=== PATIENT | male | born 1960 | race Caucasian/White ===

== ENCOUNTER 2018-12-03 19:37 | Inpatient (IN) ==
--- NOTE | 2018-12-03 20:22 | Diag Imaging Result Doc PS360 ---
CHEST-PORTABLE - 12/03/2018 INDICATION: trauma COMPARISON: None FINDINGS: The lungs are normally expanded and clear. Heart size and mediastinal contours are normal. No pneumothorax or pleural effusion. There is a right clavicle side plate. IMPRESSION: Negative exam. Electronically signed by Walter Morgan 12/03/2018 8:20 PM
--- NOTE | 2018-12-03 21:32 | PROVIDER DOCUMENTATION ---
[id number] - General Chief Complaint: TRAUMA ALERT Stated Complaint: TRAUMA 10FT FALL Time Seen by Provider: 12/03/18 20:27 Allergies/Adverse Reactions: Patient Allergies Allergy/AdvReac Type Severity Reaction Status Date / Time No Known Allergies Allergy Verified 07/02/18 16:17 Home Medications: Home Medication List Medication Instructions Recorded Confirmed Last Taken Type Celecoxib 200 mg PO DAILY 12/03/18 12/03/18 Unknown History Fosinopril Sodium 40 mg PO DAILY 12/03/18 12/03/18 Unknown History Gabapentin 600 mg PO QHS 12/03/18 12/03/18 Unknown History Tizanidine HCl 2 mg PO Q8H 12/03/18 12/03/18 Unknown History - History of Present Illness -Trauma Nature of Presenting Problem: Patient with a h/o HTN, fell off ladder 10 feet high today. He fell on the left side of the body. He only reports pain to the left chest and left shoulder where he had had previous injury. He denies any head or neck injury or pain. No injury to any other body part. He reports sitting up prior to EMS arrival . He was then placed on a semi rigid collar and transported to the ER. he reports having injuries to different parts of his body since child carter and he is always in pain. His chronic pain is being managed by his PCP Location of Pain/Injury: reports: chest (left sided) Pain Radiation: reports: no radiation Quality of Pain: reports: throbbing Onset/Duration: reports: other (today) Timing: reports: still present Method of Injury: reports: fall Loss of Consciousness: no loss of consciousness Remembers:: reports: injury, coming to hospital Modifying Factors: improves with: nothing Injury Associated Symptoms: reports: denies symptoms Similar Symptoms Previously?: Yes Recently seen or treated by another doctor?: Yes Review of Systems - Adult - REVIEW OF SYSTEMS - ADULT Constitutional: reports: no symptoms reported Eyes: reports: no symptoms reported Ears, Nose, Mouth & Throat: reports: no symptoms reported Cardiovascular: reports: no symptoms reported Respiratory: reports: no symptoms reported Gastrointestinal: reports: no symptoms reported Genitourinary: reports: no symptoms reported Musculoskeletal: reports: see HPI Integumentary: reports: no symptoms reported Neurological: reports: no symptoms reported Psychiatric: reports: no symptoms reported Endocrine: reports: no symptoms reported Hematologic/Lymphatic: reports: no symptoms reported Past History - Adult - PAST MEDICAL HISTORY-ADULT Review of Records: reports: Nursing Assessment Review, Medications Reviewed, Social history reviewed & non-contributory. Cardiovascular: reports: denies history Respiratory: reports: denies history Gastrointestinal: reports: denies history Musculoskeletal: reports: chronic pain Neurological: reports: denies history Psychiatric: reports: denies history - FAMILY HISTORY Family History: reviewed, not pertinent Physical Exam-Injury Related - Physical Exam-Injury Related General Appearance: appears well, alert, no apparent distress Immobilization?: C-collar (initially) Eyes: PERRL/EOMI Head, Ears, Nose, Mouth & Throat: normocephalic/atraumatic Neck: non-tender (even with full range of motion. no bruising), full range of motion, supple, normal inspection Respiratory: lungs clear, normal breath sounds, tenderness (lower left chest wall but without deformity or bruising. no assymetry) Cardiovascular: regular rate, rhythm, no edema Abdominal Exam: non tender, soft Back Exam: normal inspection Extremity: normal range of motion, non-tender, normal gait Neurologic: grossly normal Psych/Mental Status: oriented x 3 - Glascow Coma Score Best Eye Response ([place]): (4) open spontaneously Best Verbal Response ([place]): (5) oriented Best Motor Response ([place]): (6) obeys commands [place] Total: 15 Progress - PLAN OF CARE/RESULTS Progress/Plan/Lab Results: Vital Signs - 8 hr 12/03/18 19:56 12/03/18 20:03 12/03/18 20:15 Pulse Rate 82 87 91 H Respiratory Rate 17 18 13 Blood Pressure 180/109 174/94 187/100 O2 Sat by Pulse Oximetry 96 96 96 12/03/18 20:17 12/03/18 20:33 12/03/18 20:48 Pulse Rate 90 93 H 93 H Respiratory Rate 19 16 13 Blood Pressure 187/100 179/114 128/103 O2 Sat by Pulse Oximetry 96 96 96 12/03/18 21:18 12/03/18 22:14 12/03/18 22:18 Pulse Rate 95 H 95 H 96 H Respiratory Rate 20 22 21 Blood Pressure 152/99 136/73 129/92 O2 Sat by Pulse Oximetry 95 91 L 90 L 12/03/18 22:48 Pulse Rate 91 H Respiratory Rate 22 Blood Pressure 142/87 O2 Sat by Pulse Oximetry 95 Laboratory Results - last 24 hr 12/03/18 12/03/18 12/03/18 01:28 22:12 22:14 WBC 17.71 H RBC 5.78 Hgb 17.1 Hct 51.2 MCV 88.6 MCH 29.6 MCHC 33.4 RDW Std Deviation 13.5 Plt Count 281 MPV 11.1 H Immature Gran % (Auto) 0.2 Neut % (Auto) 80.9 H Lymph % (Auto) 10.3 L [place] % (Auto) 8.2 Eos % (Auto) 0.3 Baso % (Auto) 0.1 Immature Gran # (Auto) 0.04 Neut # (Auto) 14.33 H Lymph # (Auto) 1.82 [place] # (Auto) 1.45 H Eos # (Auto) 0.05 Baso # (Auto) 0.02 Sodium Potassium Chloride Carbon Dioxide Anion Gap BUN Creatinine Estimated GFR/1.73 m2 BUN/Creatinine Ratio Glucose POC Glucose 135 H Calculated Osmolality Calcium Total Bilirubin AST ALT Alkaline Phosphatase Troponin T Ssu-V-Mctbirolryh Pept Total Protein Albumin Globulin Albumin/Globulin Ratio Urine Source VOIDED Urine Color YELLOW Urine Turbidity CLEAR Urine pH 6.0 Ur Specific Gibson 1.023 Urine Protein TRACE A Ur Glucose (Stick) NEGATIVE Ur Ketones (Stick) 60 A Urine Blood NEGATIVE Urine Nitrite NEGATIVE Urine Bilirubin NEGATIVE Urobilinogen Dipstick NORMAL Urine Leukocytes NEGATIVE Urine WBC (Auto) <10 Urine RBC (Auto) <10 U Epithel Cells (Auto) <10 Urine Bacteria (Auto) NEGATIVE 12/03/18 12/03/18 12/03/18 22:14 22:14 22:14 WBC RBC Hgb Hct MCV MCH MCHC RDW Std Deviation Plt Count MPV Immature Gran % (Auto) Neut % (Auto) Lymph % (Auto) Piute % (Auto) Eos % (Auto) Baso % (Auto) Immature Gran # (Auto) Neut # (Auto) Lymph # (Auto) Pi[place] # (Auto) Eos # (Auto) Baso # (Auto) Sodium 139 Potassium 4.5 Chloride 103 Carbon Dioxide 22 L Anion Gap 14 BUN 19 Creatinine 1.2 Estimated GFR/1.73 m2 > 60 BUN/Creatinine Ratio 16 Glucose 142 H POC Glucose Calculated Osmolality 282 Calcium 9.6 Total Bilirubin 0.55 AST 35 H ALT 34 Alkaline Phosphatase 101 Troponin T < 0.010 Maj-O-Givxhwwmvcb Pept 35 Total Protein 7.2 Albumin 4.6 Globulin 2.6 Albumin/Globulin Ratio 1.8 Urine Source Urine Color Urine Turbidity Urine pH Ur Specific Gibson Urine Protein Ur Glucose (Stick) Ur Ketones (Stick) Urine Blood Urine Nitrite Urine Bilirubin Urobilinogen Dipstick Urine Leukocytes Urine WBC (Auto) Urine RBC (Auto) U Epithel Cells (Auto) Urine Bacteria (Auto) 12/04/18 00:57 WBC RBC Hgb 15.6 Hct 47.2 MCV MCH MCHC RDW Std Deviation Plt Count MPV Immature Gran % (Auto) Neut % (Auto) Lymph % (Auto) Pi[place] % (Auto) Eos % (Auto) Baso % (Auto) Immature Gran # (Auto) Neut # (Auto) Lymph # (Auto) Piute # (Auto) Eos # (Auto) Baso # (Auto) Sodium Potassium Chloride Carbon Dioxide Anion Gap BUN Creatinine Estimated GFR/1.73 m2 BUN/Creatinine Ratio Glucose POC Glucose Calculated Osmolality Calcium Total Bilirubin AST ALT Alkaline Phosphatase Troponin T Rmb-J-Vcqjbkjzuxa Pept Total Protein Albumin Globulin Albumin/Globulin Ratio Urine Source Urine Color Urine Turbidity Urine pH Ur Specific Gibson Urine Protein Ur Glucose (Stick) Ur Ketones (Stick) Urine Blood Urine Nitrite Urine Bilirubin Urobilinogen Dipstick Urine Leukocytes Urine WBC (Auto) Urine RBC (Auto) U Epithel Cells (Auto) Urine Bacteria (Auto) Orders Category Date Time Status Nursing- Obtain EKG ONCE Care 12/03/18 22:10 Active CHEST-PORTABLE [RAD] Stat Exams 12/03/18 19:[address] HEAD/C-SPINE W/O CONTRAST [CT] Stat Exams 12/03/18 22:[address] THORAX W/O CONTRAST [CT] Stat Exams 12/04/18 00:02 Taken RIBS ONLY LEFT [RAD] Stat Exams 12/03/18 22:11 Taken CBC WITH ELECTRONIC DIFF [HEME] Stat Lab 12/03/18 22:14 Completed COMPREHENSIVE METABOLIC PANEL [CHEM] Stat Lab 12/03/18 22:14 Completed HEMATOCRIT [HEME] Stat Lab 12/04/18 00:57 Completed HEMOGLOBIN [HEME] Stat Lab 12/04/18 00:57 Completed PRO B-NATRIURETIC PEPTIDE Stat Lab 12/03/18 22:14 Completed TROPONIN T Stat Lab 12/03/18 22:14 Completed UA [URINALYSIS] [URINALYSIS] Stat Lab 12/03/18 01:28 Completed 0.9% Sodium Chloride Inj [Ns] 1,000 ml Med 12/03/18 22:11 Discontinued IV 999 mls/hr Morphine Med 12/04/18 00:57 Discontinued 4 mg IV NOW ONE Ondansetron [Zofran] Med 12/04/18 00:57 Discontinued 4 mg IV NOW ONE EKG [EKG] Stat Ther 12/03/18 22:10 Draft patient was to be discharged home when he became diaphoretic and had a brief moment of confusion. investigations reveals neg CT head and neck,high wbc of 17.17, neg troponin. plan is to admit patient. Case discussed with Dr Coulter at 12:05am. He wants reevaluation with repeat h/h and start CT chest Result Diagrams: 12/04/18 00:57 12/03/18 22:14 - REASSESSMENT Reassessment #1 Time Reassessed: 01:01 (still left chest pain. CT chest report pending. Will give morphine + zofran) Status: unchanged - CT/MRI 1 MRI Study: Chest (left 3rd and 7th rib fractures, fracture left scapular. Less than 5% pneumothorax) - CONSULTS/PCP/HOSPITALIST Notification #1 *Consult/PCP/Hospitalist*: Dr Han Time Discussed: 02:10 Consult Disposition: Admit (accept admission) Departure - Departure Date of Disposition Decision: 12/03/18 Time of Disposition Decision: 21:52 DIAGNOSIS: Chest wall pain Fall Qualifiers: Encounter type: initial encounter Qualified Code(s): W19.XXXA - Unspecified fall, initial encounter Disposition: HOME 01 Certified Medical Emergency: Emergent Condition: Fair Additional Instructions: ED Follow Up Instructions: You have been treated by a care provider in the Emergency Department. These instructions are being provided to you so you can have an understanding of how to care for yourself upon discharge. Upon discharge from the Emergency Department, you are responsible for making arrangements for follow-up care by a physician in 1 to 2 days Take all prescribed medications as directed. Return to the Emergency Department immediately for any new or worsening symptoms. You may call the Physician Referral phone number at [phone] to obtain a list of Physicians who are taking new patients. Referrals and Follow-Ups: None,PCP [Primary Care Provider] - Work Excuses: Return to School/Parent Work Discharge Education: RICE Therapy for Routine Care of Injuries, Npjh-lq-Thne, Fall Prevention in the Home, Adult, [id number] - Critical Care Note This patient required my direct & personal management of CC.: No Attestation - Physician/ KIRA Attestation Patient care was provided by Advanced Practice Provider:: No The physician spent face to face time with patient:: Yes Advanced Practice Provider documentation review:: Supervising physician onsite and consulted in the evaluation and care of this patient. The physician did have a face to face encounter with the patient.
[2018-12-03] MEDS ORDERED: NS 1,000 ML IV ONE (22:11)
--- NOTE | 2018-12-03 22:22 | EKG Report ---
Test Performed on : 12/03/2018 10:18:56 PM Test Reason : syncope Blood Pressure : / mmHG Vent. Rate : 095 BPM Atrial Rate : 095 BPM P-R Int : 178 ms QRS Dur : 082 ms QT Int : 358 ms P-R-T Axes : 026 -05 020 degrees QTc Int : 449 ms Normal sinus rhythm. Inferior infarct (cited on or before 03-DEC-2018) Cannot rule out Anterior infarct (cited on or before 03-DEC-2018) Abnormal ECG When compared with ECG of 03-DEC-2018 19:41, (Unconfirmed) No significant change was found Unconfirmed Result
[2018-12-03 22:58] LABS: BASO# 0.02 X1000 (0.0-0.2); BASO% 0.1 % (0.0-0.8); EOS# 0.05 X1000 (0.0-0.7); EOS% 0.3 % (0.0-10.0); HEMATOCRIT 51.2 % (42.0-52.0); HEMOGLOBIN 17.1 g/dL (14.0-18.0); IMM GRAN# 0.04 X1000 (0.0-0.04); IMM GRAN% 0.2 % (0.0-0.5); LYMPH# 1.82 X1000 (1.2-3.4); LYMPH% 10.3 % (20.5-51.1); MCH 29.6 PG (27-31); MCHC 33.4 g/dL (33-37); MCV 88.6 FL (81-99); MONO# 1.45 X1000 (0.11-0.59); MONO% 8.2 % (1.7-9.3); MPV 11.1 FL (7.4-10.4); NEUT# 14.33 X1000 (1.4-6.5); NEUT% 80.9 % (42.2-75.2); PLT 281 X1000 (130-400); RBC 5.78 XMIL (4.7-6.1); RDW 13.5 % (11.5-14.5); WBC 17.71 X1000 (4.8-10.8)
[2018-12-03 23:02] LABS: AGAP 14; ALB/GLOB RATIO 1.8; ALBUMIN 4.6 g/dL (3.5-5.0); ALKALINE PHOSPHATASE 101 U/L (32-122); BUN 19 mg/dL (8-22); CALCIUM 9.6 mg/dL (8.8-10.2); CHLORIDE 103 mmol/L (98-107); COSMO 282; CREATININE 1.2 mg/dL (0.7-1.2); ESTIMATED GFR > 60; GLUCOSE 142 mg/dL (70-104); GOT 35 U/L (10-34); GPT 34 U/L (10-44); POTASSIUM 4.5 mmol/L (3.5-5.1); SODIUM 139 mmol/L (136-145); TCO2 22 mmol/L (25-35); TOTAL BILIRUBIN 0.55 mg/dL (0.20-1.00); TOTAL PROTEIN 7.2 g/dL (6.3-8.3)
[2018-12-04] MEDS ORDERED: MORPHINE IV ONE (00:57)
[2018-12-04] MEDS ORDERED: ZOFRAN IV ONE (00:57)
[2018-12-04 01:10] LABS: HEMATOCRIT 47.2 % (42.0-52.0); HEMOGLOBIN 15.6 g/dL (14.0-18.0)
[2018-12-04 01:50] LABS: URINE SOURCE VOIDED
[2018-12-04 01:52] LABS: BILIRUBIN URINE NEGATIVE (NEGATIVE); BLOOD URINE NEGATIVE (NEGATIVE); COLOR YELLOW; GLUCOSE URINE NEGATIVE (NEGATIVE); KETONE URINE 60 mg/dL (NEGATIVE); LEUKOCYTES URINE NEGATIVE (NEGATIVE); NITRITE URINE NEGATIVE (NEGATIVE); PROTEIN URINE TRACE mg/dL (NEGATIVE); SP GRAVITY URINE 1.023; TURBIDITY URINE CLEAR (CLEAR); UROBILINOGEN URINE NORMAL (NORMAL)
[2018-12-04 01:53] LABS: UR EPITHELIAL CELLS <10 /HPF (<10); URINE BACTERIA NEGATIVE /HPF; URINE RBC <10 /HPF (<10); URINE WBC <10 /HPF (<10)
[2018-12-04] MEDS ORDERED: ZOFRAN IV PRN (04:04)
[2018-12-04] MEDS ORDERED: TYLENOL PO PRN (04:04)
[2018-12-04] MEDS: ZANAFLEX PO SCH ×3 (04:53→21:43)
[2018-12-04] MEDS: DILAUDID IV PRN ×5 (04:53→21:43)
--- NOTE | 2018-12-04 04:58 | HISTORY AND PHYSICAL ---
CHIEF COMPLAINT: Fall. HPI: This is a 58-year-old male who fell roughly 10 feet off of a ladder today. He fell on his left side across a 2 x 6 board, hitting his left ribcage and then shoulder when he hit the ground. He denies any head or neck injury or pain. Denied injury to other body parts. He was sitting up prior to arrival by EMS. A chest x-ray showed left-sided rib fractures. The patient became diaphoretic as well as hypoxic while in the emergency room. A CT of his chest was obtained which showed less than 5% pneumothorax. His pain will be managed. He will be placed on high-flow oxygen and put on observation status for further evaluation and treatment. PAST MEDICAL HISTORY: Hypertension, kidney stones. PREVIOUS SURGICAL HISTORY: Appendectomy, cholecystectomy, right shoulder surgery, right collarbone replacement. SOCIAL HISTORY: He works on a farm. No tobacco, alcohol, or illicit drugs. FAMILY HISTORY: Father had 5 myocardial infarctions and 7 strokes. Multiple first degree relatives with diabetes mellitus. ALLERGIES: NO KNOWN DRUG ALLERGIES. HOME MEDICATIONS: 1. Celecoxib 200 mg p.o. daily. 2. Fosinopril 40 mg p.o. daily. 3. Neurontin 600 mg p.o. at bedtime. 4. Tizanidine 2 mg p.o. q.8. REVIEW OF SYSTEMS: A 14-point review of systems was conducted with the patient. He complains of left chest pain. He denies any overt shortness of breath. He also has some left shoulder pain. States that he has chronic pain. Has multiple areas of pain in other body parts as well which he has chronically. Denies any bowel or bladder complaints or chest pain. PHYSICAL EXAMINATION: VITAL SIGNS: Patient is afebrile, pulse 91, respirations 22, blood pressure 142/87, oxygen saturation 95% on 2L nasal cannula. GENERAL: Pleasant 58-year-old male lying in ER stretcher. He is alert and oriented x3. Answers all questions appropriately. HEENT: Head is atraumatic, normocephalic. Pupils equal, round, react to light. Extraocular eye movements intact. Sclera anicteric. Conjunctiva pink. Oral mucosa is moist. NECK: Supple. No JVD. No thyromegaly. Trachea is midline. No cervical lymphadenopathy. CARDIAC: S1, S2 are appreciated. No murmurs, gallops, rubs. CHEST: Left chest wall and ribs are very tender to palpation. LUNGS: Clear to auscultation bilaterally. No rhonchi, wheezes, rales. Symmetric rise and fall respirations. ABDOMEN: Protuberant. Soft, nondistended, nontender. Bowel sounds present all 4 quadrants, normoactive. No pulsatile mass. No organomegaly. EXTREMITIES: No clubbing, cyanosis or edema, 2+ pedal pulses bilaterally. GENITOURINARY: No bladder distention. Patient voids, otherwise deferred. NEUROLOGICAL: Alert and oriented x3. Cranial nerves 2-12 grossly intact. DIAGNOSTIC DATA: Chest x-ray shows multiple left rib fractures. CT of the chest shows rib fractures as well as a 5% pneumothorax on the left side. LABORATORY DATA: WBC 17.71, hemoglobin 17.1, hematocrit 51,2, platelet count 281,000. Sodium 139, potassium 4.5, chloride 103, carbon dioxide 22, BUN 19, creatinine 1.2, glucose 142. Urine unremarkable. ASSESSMENT AND PLAN: 1. Right rib fractures. Will manage pain with Dilaudid as morphine was not working. Will continue to keep patient comfortable. 2. Small left-sided pneumothorax. Will place on high-flow oxygen. Recommend repeat CT of the chest in 24 hours as it was not picked up plain film. 3. Hypertension. Continue TABITHA inhibitor. 4. Chronic pain. Continue home medications. 5. Leukocytosis. This is likely reactive. Will recheck laboratory data. 6. Hyperglycemia. Check hemoglobin A1c as patient does have a strong history of diabetes mellitus in first degree relatives. Further recommendations per patient's clinical course. Dictated by CHEMA Spears for Lis Coulter MD cc: CHEMA Spears MD Pt's exam was notable for tenderness on L lateral aspect of chest without any crepitus. Discussed the above plan of care with NOUGAT CANDY MAKER HELPER. ANDREI
[2018-12-04 05:00] LABS: HEMOGLOBIN A1C 6.1 % (4.8-6.0)
--- NOTE | 2018-12-04 06:26 | Diag Imaging Result Doc PS360 ---
CT HEAD/C-SPINE W/O CONTRAST - 12/03/2018 INDICATION: head injury/pain COMPARISON: 07/18/2010 FINDINGS: Head CT: The ventricles and sulci are normal in size and contour. No intracranial mass or hemorrhage. The skull is intact. The sinuses, mastoids, and middle ears are clear. Cervical spine: Alignment is anatomic. No fracture or subluxation. Vertebral body heights are preserved. Mild degenerative disc disease at C6-7 and C7-T1. No central canal stenosis. IMPRESSION: No acute injury. This exam was performed using automated exposure control, adjustment of mA or kV according to patient size, and/or use of iterative reconstruction technique Electronically signed by Walter Morgan 12/04/2018 6:23 AM
--- NOTE | 2018-12-04 06:53 | Diag Imaging Result Doc PS360 ---
CT THORAX W/O CONTRAST - 12/04/2018 INDICATION: fall from heightwith left chest pain, near syncope COMPARISON: None FINDINGS: There are minimally displaced fractures of the left third and seventh ribs. There is nondisplaced fracture through the left scapular body. There is no adenopathy. There is a small lipoma within the pectoralis muscles of the anterior right chest. No pneumothorax. There is moderate infiltrate in the left lower lobe. There is some platelike atelectasis in the lingula and right lung base. Heart and great vessels are normal. Upper abdominal images are normal. No fluid collections. IMPRESSION: 1. Fractures of the left third and seventh ribs. 2. Nondisplaced left scapular body fracture. 3. Significant left lower lobe infiltrate, nonspecific. Bibasilar linear atelectasis. No pneumothorax. This exam was performed using automated exposure control, adjustment of mA or kV according to patient size, and/or use of iterative reconstruction technique Electronically signed by Walter Morgan 12/04/2018 6:50 AM
--- NOTE | 2018-12-04 07:15 | Diag Imaging Result Doc PS360 ---
EXAM: RIBS ONLY LEFT 12/03/2018 HISTORY: fall, rib pain TECHNIQUE: Left rib series 4 views COMMENT: There is apparent subsegmental atelectasis in the left base. There are fractures of the lateral left third, posterior fourth, fifth, sixth, and seventh ribs. There is no evidence of pneumothorax. No definite pleural fluid collection is present. IMPRESSION: Multiple left rib fractures. Electronically signed by Carlo Pina 12/04/2018 7:13 AM
[2018-12-04] MEDS: MONOPRIL PO SCH (09:38)
--- NOTE | 2018-12-04 16:49 | PROGRESS NOTE ---
DATE: 12/04/2018 SUBJECTIVE: This morning Mr. Swenson refers to be doing well. Denies any new complaints except for pains to the left shoulder. OBJECTIVE: Vital Signs: Blood pressure 120/66, pulse 73, respirations 18, and temperature 98.1 degrees. General: Mr. Swenson is a 58 years old gentleman. He was in bed in mild painful distress. HEENT: Mucosa is pink and moist. Anicteric. Acyanotic. Neck: Supple. Chest: Air entry was bilaterally reduced more so to the left posterior lung field. Cardiovascular: Regular rate and rhythm. No murmurs, no rubs, no gallops. Abdomen: Soft. Distended but nontender. Bowel sounds present. Extremities: No pedal edema. SUPERVISOR ADVICE: Patient is awake, alert, and oriented. Musculoskeletal: Patient has pain, tenderness, in mobilizing the left shoulder in any plane. LABORATORY: Data from yesterday has been reviewed. Hemoglobin this morning is 15.7. The patient's A1c was 6.1. A CT scan of the chest which was done early this morning shows fractures of the left 3rd and 7th ribs, nondisplaced left scapular body, significant left lower lobe infiltrate, nonspecific. No pneumothorax. ASSESSMENT: 1. Status post mechanical fall from a ladder resulting into fractures of the left 3rd and 7th ribs, and also a non displaced left scapular body fracture. The patient has significant tenderness mobilizing the left shoulder so we will get Orthopedics to evaluate him. 2. Traumatic pneumothorax resolved. 3. Left lower lobe infiltrate questionable for lung contusion. The patient has been advised on incentive spirometer. 4. Hypertension controlled. 5. Chronic pain syndrome. Patient is on gabapentin and tizanidine at home. 6. Cervical disk bulging with some with radiculopathy. The patient is on gabapentin, and follows up with primary care. cc: Lionel Allen MD
[2018-12-04] MEDS ORDERED: NEURONTIN PO SCH (21:00)
--- NOTE | 2018-12-04 21:41 | ORTHOPAEDICS CONSULTATION ---
DATE: 12/04/2018 SERVICE: Orthopedic surgery. REQUESTING PHYSICIAN: Dr. Allen. REASON FOR CONSULTATION: Left scapular fracture. PAST MEDICAL HISTORY: 1. Hypertension. 2. Kidney stones. PAST SURGICAL HISTORY: 1. Appendectomy. 2. Cholecystectomy. 3. Right shoulder surgery with what sounds like ORIF right clavicle fracture. MEDICATIONS: 1. Fosinopril. 2. Gabapentin. 3. Tizanidine. 4. Celebrex. ALLERGIES: No known drug allergies. SOCIAL HISTORY: Patient lives in [place], [place]. Works on a farm. He is right-hand dominant. Denies any tobacco, alcohol, drug use. FAMILY HISTORY: Noncontributory. REVIEW OF SYSTEMS: Negative other than what is listed in the history of present illness. CHIEF COMPLAINT: Left rib and shoulder pain. HISTORY OF PRESENT ILLNESS: Mr. Edgar is a 58-year-old gentleman who presented to [facility] ER yesterday after sustaining a 10-foot fall from a ladder. Patient states he fell from the ladder onto a 2 x 6 which hit directly on his left side ribs. He had significant pain and problems breathing following this. He thus presented to the ER. In the ER, x-rays were taken demonstrating left 3rd and 7th rib fractures as well as small pneumothorax. CT scan of the chest was done, which showed a nondisplaced scapular body fracture. Orthopedic surgery was thus consulted. The patient reports pain with attempted range of motion of his arm. He denies any prior injury on the left arm. Again, he is right-hand dominant. PHYSICAL EXAMINATION: General: Mr. Swenson is a 58-year-old male who appears well nourished, well developed, in no acute distress. He is awake, alert, and oriented x3. He is very polite and cooperative during examination. Vital Signs: Temperature is 98.3 degrees Celsius, heart rate 78, respiratory rate 20, blood pressure 145/75. O2 saturation 95% on room air. HEENT: Normocephalic and atraumatic. Respiratory: Nonlabored breathing. Cardiovascular: Regular rate and rhythm. Extremities: Examination of left upper extremity reveals skin to be intact. Patient has tenderness to palpation over his scapular body posteriorly. He is nontender over his clavicle, AC joint, acromion, proximal humerus. He has no pain with short arc range of motion of his shoulder by his side. He does have pain in the scapula and ribs with attempted abduction or forward flexion of the shoulder. He has subjective paresthesias in his hand globally secondary to cervical radiculopathy, which he takes chronic narcotics for and is followed by his primary care doctor for this. Motors intact to AIN, PIN, and ulnar nerve distribution. Sensation is grossly intact median, radial, ulnar, axillary nerves. Radial pulse palpable, and equal bilaterally. LABORATORY DATA: White count 18, hemoglobin 15.6, hematocrit 47.2, platelets 281,000. IMAGING DATA: CT scan of the chest was reviewed demonstrating a nondisplaced scapular body fracture. No fracture of the acromion, glenoid, or clavicle present on x-ray. Patient also has a left 3rd and 7th rib fracture. Two views of the left rib cage were also reviewed, again demonstrating the above fractures. The humeral head is partially visualized on this x-ray demonstrating repair and reduction in the joint, which was also confirmed on CT scan. ASSESSMENT: A 58-year-old male with left nondisplaced scapular body fracture. PLAN: 1. A long discussion was had with patient regarding diagnosis and treatment options. As the fracture is in good alignment, I will treat this conservatively. We will recommend the patient wear a sling for comfort. I want him to come out of the sling multiple times a day to work on elbow, forearm, wrist, and hand range of motion. Physical Therapy can work with him and educate him on Codman pendulum exercises for the shoulder. I told him it usually takes about 8 to 10 weeks for these to fully heal. I will plan on seeing him in clinic in 2 weeks with repeat 3 views of the shoulder to ensure no displacement of the fracture. 2. Physical Therapy to work with him on Codman pendulum exercises as mentioned above. 3. I will order 3 views of the left shoulder in order to have baseline imaging, and I get a better picture of the scapula to assess for any other displacement or abnormalities.
[2018-12-05] MEDS: DILAUDID IV PRN ×5 (01:01→14:41)
[2018-12-05] MEDS: ZANAFLEX PO SCH ×2 (04:24→11:15)
[2018-12-05 06:57] LABS: BASO# 0.02 X1000 (0.0-0.2); BASO% 0.2 % (0.0-0.8); EOS# 0.04 X1000 (0.0-0.7); EOS% 0.4 % (0.0-10.0); HEMOGLOBIN 15.4 g/dL (14.0-18.0); IMM GRAN# 0.03 X1000 (0.0-0.04); IMM GRAN% 0.3 % (0.0-0.5); LYMPH# 1.19 X1000 (1.2-3.4); LYMPH% 10.5 % (20.5-51.1); MCHC 32.8 g/dL (33-37); MCV 91.6 FL (81-99); MONO# 1.18 X1000 (0.11-0.59); MONO% 10.4 % (1.7-9.3); MPV 10.8 FL (7.4-10.4); NEUT# 8.89 X1000 (1.4-6.5); NEUT% 78.2 % (42.2-75.2); PLT 207 X1000 (130-400); RBC 5.13 XMIL (4.7-6.1); RDW 13.7 % (11.5-14.5); WBC 11.35 X1000 (4.8-10.8)
[2018-12-05 07:22] LABS: AGAP 10; BUN 19 mg/dL (8-22); CALCIUM 8.3 mg/dL (8.8-10.2); CHLORIDE 100 mmol/L (98-107); COSMO 273; CREATININE 0.9 mg/dL (0.7-1.2); ESTIMATED GFR > 60; GLUCOSE 117 mg/dL (70-104); POTASSIUM 3.6 mmol/L (3.5-5.1); SODIUM 135 mmol/L (136-145); TCO2 25 mmol/L (25-35)
[2018-12-05] MEDS: MONOPRIL PO SCH ×2 (07:58→08:11)
--- NOTE | 2018-12-05 08:58 | Diag Imaging Result Doc PS360 ---
EXAM: SHOULDER-LEFT 12/05/2018 HISTORY: Scapula Fracture TECHNIQUE: Left shoulder four views COMMENT: There are fractures of the lateral left third and the anterolateral fourth ribs. There are also apparent fractures of the anterolateral sixth and seventh ribs. There is no evidence of pneumothorax. There is an apparent nondisplaced fracture of the scapula just below the neck which is only visible on the Y-view. IMPRESSION: Nondisplaced scapular fracture and multiple rib fractures as described above. Electronically signed by Carlo Pina 12/05/2018 8:55 AM
--- NOTE | 2018-12-05 10:24 | Diag Imaging Result Doc PS360 ---
EXAM: CHEST-2 VIEWS INDICATION: hypoxia TECHNIQUE: 2 views COMPARISON: 12/03/2018 FINDINGS: At the lung volumes are low. There is increase in linear density at the lung bases likely representing atelectasis. There may be a trace effusion on the left. No other new consolidation is identified. Cardiac silhouette is stable. IMPRESSION: Development of mild subsegmental atelectasis at the lung bases and possible trace effusion on the left. Electronically signed by Caleb Cr 12/05/2018 10:21 AM
--- NOTE | 2018-12-05 11:01 | PROGRESS NOTE ---
DATE: 12/05/2018 SUBJECTIVE: This morning, Mr. Swenson referred to be doing well. Still has some pains in the left shoulder and the left side of the chest. OBJECTIVE: Vital Signs: Blood pressure is 129/73, pulse of 83, respirations 20, temperature is 99.2 degrees, the patient was saturating 93%. General: Mr. Swenson is a 58-year-old gentleman. He was in bed. He is now on nasal cannula oxygenation. HEENT: Mucosa is pink and moist. Anicteric. Acyanotic. Neck: Supple. Chest: Air entry is bilaterally reduced, more so to the left posterior lung field. There are some crepitations posteriorly. Cardiovascular: Regular rate and rhythm. No murmurs, no rubs, no gallops. GI: Abdomen is soft, nontender. Bowel sounds present. Extremities: No pedal edema. TRAINING TECHNICIAN: The patient is awake, alert, and oriented. Musculoskeletal: The patient does have some tenderness on mobilizing the left shoulder. Has a limited range of motion. There is also some tenderness on palpating the lateral aspect of the left chest cage. IMAGING: Chest x-ray this morning suggests nondisplaced scapular fracture and multiple rib fractures described. ASSESSMENT: 1. Status post mechanical fall from a ladder, resulting into multiple rib fractures, associated with also a nondisplaced left scapular fracture. The patient was evaluated by Orthopedics. For now, conservative management has been recommended. 2. Traumatic pneumothorax, resolved. 3. Acute hypoxemic respiratory failure. The patient is needing supplemental oxygen. 4. Left lower lobe infiltrate, questionable for lung contusion. The patient has been advised to continue using incentive spirometer. We are also doing a chest x-ray this morning to follow up on any improvement or worsening on the initial image. 5. Hypertension, controlled. 6. History of chronic pain syndrome. 7. History of cervical disk bulging with some cervical radiculopathy. The patient follows up with primary care. He is on gabapentin. In general, I think Mr. Swenson is doing fairly okay. He is now needing oxygen supplementation, which I think is due to the fact that he has antalgic respiration due to pain, and he also has a left lower lobe infiltrate due to lung contusion. His white cell count is coming down, so I do not really think that there is an infection. However, a superimposed infection cannot be 100% ruled out. Depending on his chest x-ray this morning, we will start him on antibiotics, and continue to advise him to use incentive spirometer, and possibly discharge him. cc: Lionel Allen MD
[2018-12-05 15:28] VITALS: BP 126/69
--- NOTE | 2018-12-06 05:31 | DISCHARGE SUMMARY ---
ADMISSION DATE: 12/04/2018 DISCHARGE DATE: 12/05/2018 DISPOSITION: Home. FOLLOW-UP: Dr. Umanzor. CONSULTATIONS DURING ADMISSION: Orthopedics was consulted. Patient was seen by Dr. Umanzor. INVASIVE PROCEDURES DONE DURING ADMISSION: None. IMAGING STUDIES OF SIGNIFICANCE: 1. Chest x-ray initially was negative. 2. A CT scan of the head and cervical spine showed no acute injury. 3. CT scan of the chest did show fractures of the left 3rd and 7th ribs. Significant left lower lobe infiltrate, nonspecific bibasilar linear atelectasis. 4. A repeat chest x-ray this morning shows mild segmental atelectasis at the lung bases, and possible trace effusion on the left. 5. Shoulder x-ray showed nondisplaced scapular fracture and multiple rib fractures. ADMISSION DIAGNOSES: 1. Right rib fractures. 2. Small left sided pneumothorax. 3. Hypertension. 4. Chronic pain. DIAGNOSES AT TIME OF DISCHARGE: 1. Status post mechanical fall from a ladder resulting into multiple rib fractures and nondisplaced left scapular fracture. 2. Small traumatic pneumothorax that got resolved with oxygen therapy during the hospital course. 3. Acute hypoxemic respiratory failure improved. 4. Left lung contusion with left lower lobe infiltrates. The patient has been advised to continue using incentive spirometer. 5. Hypertension. 6. History of chronic pain. 7. History of cervical disk bulging with cervical radiculopathy. DISCHARGE MEDICATIONS: 1. Fosinopril 40 mg p.o. daily. 2. Gabapentin 600 p.o. at bedtime. 3. Tizanidine 2 mg p.o. q.8. 4. Celecoxib 200 mg p.o. daily. PRESENTING COMPLAINT: Fall. HISTORY OF PRESENTING COMPLAINT: Mr. Swenson is a 58-year-old gentleman who was doing some work at home, had gone on a ladder of about 10 feet, accidentally lost balance, and fell sustaining injury to the left side. He started having some pain and difficulty breathing. He was brought into the emergency department where he was found to be slightly hypoxemic and diaphoretic. A CT scan did make mention of about 5% pneumothorax and multiple rib fractures. Mr. Swenson was admitted for further medical care. HOSPITAL COURSE: Mr. Swenson was admitted to the medical floor, and was initially placed on supplemental oxygen. Repeat imaging studies did show resolution of the pneumothorax. His pain got better controlled. During the hospital course, he was also seen by Orthopedics for the scapular fracture. Recommendation was to treat this conservatively. Today, Mr. Swenson refers to be doing well. He has been taking off supplemental oxygen. He is saturating anywhere between 92 to 94. He has been advised to continue using incentive spirometer, and continue with his pain medications at home for pain relief. Mr. Swenson did not want any more pain medications, and he said he just wanted to continue with what he has at home. We did stress the utmost importance of continued use of incentive spirometer to help open up any atelectatic lung. And also to prevent any infection on the contusion of the lungs. During the course of the encounter, the was at the bedside. We explained the discharge instructions to both of them, and they both voiced understanding. TIME SPENT: Time spent for discharge 35 minutes. cc: MD Trev Farooq MD
== END 2018-12-05 16:49 | disposition home or self-care (01) | DRG 199 ==
LOC: ED 19:37 → 4N 19:37 → OBSVTOIN 12-04 03:12 → SUATTDRO 12-04 03:12
PROVIDERS: ATTEND Internal Medicine

== ENCOUNTER 2018-12-27 06:37 | Inpatient (IN) ==
[2018-12-27 07:43] LABS: BASO# 0.03 X1000 (0.0-0.2); BASO% 0.5 % (0.0-0.8); EOS# 0.39 X1000 (0.0-0.7); EOS% 6.1 % (0.0-10.0); HEMATOCRIT 48.4 % (42.0-52.0); HEMOGLOBIN 15.9 g/dL (14.0-18.0); IMM GRAN# 0.02 X1000 (0.0-0.04); IMM GRAN% 0.3 % (0.0-0.5); LYMPH# 1.11 X1000 (1.2-3.4); LYMPH% 17.3 % (20.5-51.1); MCH 29.5 PG (27-31); MCHC 32.9 g/dL (33-37); MCV 89.8 FL (81-99); MONO# 0.63 X1000 (0.11-0.59); MONO% 9.8 % (1.7-9.3); MPV 10.9 FL (7.4-10.4); NEUT# 4.22 X1000 (1.4-6.5); PLT 260 X1000 (130-400); RBC 5.39 XMIL (4.7-6.1); RDW 13.2 % (11.5-14.5)
[2018-12-27] MEDS ORDERED: MORPHINE IV ONE (07:48)
[2018-12-27] MEDS ORDERED: ZOFRAN IV ONE (07:48)
--- NOTE | 2018-12-27 07:51 | PROVIDER DOCUMENTATION ---
HPI-General Adult - General Chief Complaint: Abdominal Pain Stated Complaint: LOW STOMACH PAIN Time Seen by Provider: 12/27/18 07:47 Source: patient, family Allergies/Adverse Reactions: Patient Allergies Allergy/AdvReac Type Severity Reaction Status Date / Time No Known Allergies Allergy Verified 12/27/18 06:56 Home Medications: Home Medication List Medication Instructions Recorded Confirmed Last Taken Type Celecoxib 200 mg PO DAILY 12/03/18 12/27/18 Unknown History Fosinopril Sodium 40 mg PO DAILY 12/03/18 12/27/18 Unknown History Gabapentin 600 mg PO QHS 12/03/18 12/27/18 Unknown History Tizanidine HCl 2 mg PO Q8H 12/03/18 12/27/18 Unknown History - History of Present Illness -Gen Adult Nature of Presenting Problems: 58 YO REPORTS LLQ PAIN 0400 , TENDER SAME SPOT. RECENT FALL WITH LEFT BROKEN RI BS AND PNEUMO HERE . DENIES V/N/D, COUGH, FEVER, DYSURIA. NO BM YESTERDAY. NO PRIOR HX DIVERTICULITIS. NO OTHER HEALTH PROBLEMS. Review of Systems - Adult - REVIEW OF SYSTEMS - ADULT Constitutional: reports: no symptoms reported. denies: chills, fever, fatique Eyes: reports: no symptoms reported Ears, Nose, Mouth & Throat: reports: no symptoms reported Cardiovascular: reports: see HPI Respiratory: reports: no symptoms reported Gastrointestinal: reports: no symptoms reported Genitourinary: reports: no symptoms reported Musculoskeletal: reports: no symptoms reported Integumentary: reports: no symptoms reported Neurological: reports: no symptoms reported Psychiatric: reports: no symptoms reported Endocrine: reports: no symptoms reported Hematologic/Lymphatic: reports: no symptoms reported Allergic/Immunologic: reports: no symptoms reported All Other Systems: Reviewed and Negative Past History - Adult - PAST MEDICAL HISTORY-ADULT Review of Records: reports: Nursing Assessment Review, Medications Reviewed, Social history reviewed & non-contributory. Cardiovascular: reports: denies history Respiratory: reports: denies history Gastrointestinal: reports: denies history Musculoskeletal: reports: chronic pain Neurological: reports: denies history Psychiatric: reports: denies history - FAMILY HISTORY Family History: reviewed, not pertinent Physical Exam-General - PHYSICAL EXAM-ADULT Initial Vital Signs Reviewed: Yes - CONSTITUTIONAL General Appearance: appears well, alert, no apparent distress - EYES Eyes: PERRL/EOMI - HEAD, EARS, NOSE, MOUTH & THROAT HENMT: moist mucous membranes, normal ENT inspection, pharynx normal - NECK Neck: supple - RESPIRATORY Respiratory: lungs clear, normal breath sounds, no respiratory distress, no accessory muscle use - CARDIOVASCULAR Cardiovascular: regular rate, rhythm, no murmur - CHEST (BREASTS) Chest/Breast: tenderness (Left lower ribtender to palpation) - GASTROINTESTINAL (ABDOMEN) Abdominal Exam: soft, tenderness (left flank) - MUSCULOSKELETAL Back Exam: no vertebral tenderness Extremity: no pedal edema, no calf tenderness - SKIN Integumentary: normal color, warm/dry - NEUROLOGIC Neurologic: grossly normal - PSYCHIATRIC Psych/Mental Status: normal mood/affect, normal thought content, oriented x 3 Progress - PLAN OF CARE/RESULTS Progress/Plan/Lab Results: Vital Signs - 8 hr 12/27/18 06:40 Temperature 97.5 F L Pulse Rate 74 Respiratory Rate 18 Blood Pressure 197/96 O2 Sat by Pulse Oximetry 95 Laboratory Results - last 24 hr 12/27/18 07:02 WBC 6.40 RBC 5.39 Hgb 15.9 Hct 48.4 MCV 89.8 MCH 29.5 MCHC 32.9 L RDW Std Deviation 13.2 Plt Count 260 MPV 10.9 H Immature Gran % (Auto) 0.3 Neut % (Auto) 66.0 Lymph % (Auto) 17.3 L [place] % (Auto) 9.8 H Eos % (Auto) 6.1 Baso % (Auto) 0.5 Immature Gran # (Auto) 0.02 Neut # (Auto) 4.22 Lymph # (Auto) 1.11 L [place] # (Auto) 0.63 H Eos # (Auto) 0.39 Baso # (Auto) 0.03 Orders Category Date Time Status NPO Diet 12/27/18 07:[address] ABD/PELVIS W/IV CONT ONLY [CT] Stat Exams 12/27/18 07:48 Ordered CBC WITH DIFF [HEME] Stat Lab 12/27/18 07:02 Completed CBC WITH ELECTRONIC DIFF [HEME] Stat Lab 12/27/18 07:47 Uncollected COMPREHENSIVE METABOLIC PANEL [CHEM] Stat Lab 12/27/18 07:02 Received LIPASE [CHEM] Stat Lab 12/27/18 07:02 Received URINALYSIS [URINALYSIS] Stat Lab 12/27/18 07:32 Uncollected Morphine Med 12/27/18 07:48 Once 4 mg IV NOW ONE Ondansetron [Zofran] Med 12/27/18 07:48 Once 4 mg IV NOW ONE Abd Pain/OB <20 weeks Stat Oth 12/27/18 07:31 Ordered Result Diagrams: 12/27/18 07:02 12/27/18 07:02 - CONSULTS/PCP/HOSPITALIST Notification #1 *Consult/PCP/Hospitalist*: d/w CHEMA Brar for Hospitalist. Admit to Dr Allen Time Discussed: 10:53 Reason/Comments: requested Urology consult. Consult Disposition: Admit - CHANGE OF SHIFT REPORT (ED Provider) 1 Report Given and Care Transferred to:: DR PERSAUD Time of Transfer: 08:30 Items Pending: CT/MRI Results Departure - Departure Date of Disposition Decision: 12/27/18 Time of Disposition Decision: 11:03 DIAGNOSIS: Renal colic on left side, Pneumonia, Pyelonephritis of left kidney Disposition: ADMITTED INPATIENT 09 Certified Medical Emergency: Emergent Condition: Stable - Critical Care Note This patient required my direct & personal management of CC.: No Attestation - Physician/ KIRA Attestation Patient care was provided by Advanced Practice Provider:: No The physician spent face to face time with patient:: Yes Advanced Practice Provider documentation review:: Supervising physician onsite and consulted in the evaluation and care of this patient. The physician did have a face to face encounter with the patient.
[2018-12-27] MEDS ORDERED: NS 500 ML IV ONE (08:02)
[2018-12-27 08:04] LABS: AGAP 12; ALB/GLOB RATIO 1.7; ALBUMIN 4.4 g/dL (3.5-5.0); ALKALINE PHOSPHATASE 174 U/L (32-122); BUN 27 mg/dL (8-22); CALCIUM 9.3 mg/dL (8.8-10.2); CHLORIDE 103 mmol/L (98-107); COSMO 288; CREATININE 1.1 mg/dL (0.7-1.2); ESTIMATED GFR > 60; GLUCOSE 125 mg/dL (70-104); GOT 14 U/L (10-34); GPT 21 U/L (10-44); LIPASE 30 U/L (13-60); POTASSIUM 4.5 mmol/L (3.5-5.1); SODIUM 141 mmol/L (136-145); TCO2 26 mmol/L (25-35); TOTAL BILIRUBIN 0.27 mg/dL (0.20-1.00)
[2018-12-27 08:22] LABS: URINE SOURCE CLEAN CATCH
--- NOTE | 2018-12-27 08:51 | Diag Imaging Result Doc PS360 ---
EXAM: CHEST-2 VIEWS 12/27/2018 HISTORY: short of breath TECHNIQUE: PA and lateral chest COMMENT: There is blunting of the left costophrenic sulcus and thickening of the pleura which is presumably due to fibrosis as this has not changed since 12/05/2018. There is some platelike atelectasis in the medial right base. The heart size and pulmonary vascularity are within normal limits. IMPRESSION: Right lower lobe atelectasis. 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 Electronically signed by Carlo Pina 12/27/2018 8:48 AM
[2018-12-27 08:53] LABS: BILIRUBIN URINE NEGATIVE (NEGATIVE); BLOOD URINE MODERATE (NEGATIVE); COLOR YELLOW; GLUCOSE URINE NEGATIVE (NEGATIVE); KETONE URINE NEGATIVE (NEGATIVE); LEUKOCYTES URINE NEGATIVE (NEGATIVE); NITRITE URINE NEGATIVE (NEGATIVE); PROTEIN URINE 30 mg/dL (NEGATIVE); TURBIDITY URINE CLEAR (CLEAR); UROBILINOGEN URINE NORMAL (NORMAL)
--- NOTE | 2018-12-27 09:04 | Diag Imaging Result Doc PS360 ---
EXAM: CT ABD/PELVIS W/IV CONT ONLY 12/27/2018 HISTORY: LLQ PAIN ND TENDER TECHNIQUE: This exam was performed using automated exposure control, adjustment of mA or kV according to patient size, and/or use of iterative reconstruction technique. COMMENT: The current examination is compared with 07/07/2013. There are some platelike opacities in the lung bases which may be due to fibrosis. There is a greater degree of opacification and consolidation in the left lower lobe which was not present at the time the previous study. There is a small left pleural effusion. There has been cholecystectomy. There is some prominence of the intrahepatic bile ducts. Otherwise the liver is unremarkable. There are some calcifications in the abdominal aorta. The mesenteric and renal arteries are patent. The hepatic artery arises independently from the aorta. There is hydronephrosis on the left. There is a stone at the ureteropelvic junction measuring over 6 mm in diameter. There was a similar stone in this location at the time the previous study. There is delayed nephrogram on the left. Some perinephric stranding is present. There are additional stones in the lower pole calyx on the left the larger of which measures 6 mm in diameter. There is some stool in the colon without evidence of dilatation. The small bowel is not distended. The pancreas is unremarkable. The spleen and adrenal glands are not enlarged. Pelvis: There has been previous appendectomy. There is some diverticulosis in the sigmoid colon without evidence of active diverticulitis. No abnormal fluid collections are present and there is no evidence of significant adenopathy. There are calcifications in the prostate. The urinary bladder is unremarkable. There is no evidence of acute bony abnormality. IMPRESSION: 1. Hydronephrosis on the left due to ureteropelvic junction stone. Left nephrolithiasis. 2. Left pleural effusion and left lower lobe atelectasis versus pneumonia. Electronically signed by Carlo Pina 12/27/2018 9:02 AM
[2018-12-27 09:06] LABS: UR EPITHELIAL CELLS <10 /HPF (<10); URINE BACTERIA NEGATIVE /HPF; URINE RBC TNTC /HPF (<10); URINE WBC <10 /HPF (<10)
[2018-12-27] MEDS ORDERED: DILAUDID IV ONE (09:28)
[2018-12-27] MEDS ORDERED: ROCEPHIN 1 GM in NS 50 ML IV ONE (09:29)
[2018-12-27] MEDS ORDERED: ZOFRAN IV PRN (11:06)
[2018-12-27] MEDS ORDERED: DILAUDID IV PRN (11:06)
[2018-12-27] MEDS ORDERED: SODIUM CHLORIDE 0.9% INJ PRN (11:06)
[2018-12-27] MEDS ORDERED: TYLENOL PO PRN (11:06)
[2018-12-27] MEDS ORDERED: PHENERGAN IV PRN (11:06)
[2018-12-27] MEDS: NS 1,000 ML IV SCH ×2 (12:18→22:02)
--- NOTE | 2018-12-27 15:25 | HISTORY AND PHYSICAL ---
PRIMARY CARE PROVIDER: Dr. Robyn Levin. CHIEF COMPLAINT: Left lower quadrant abdominal pain. HISTORY OF PRESENT ILLNESS: Mr. Eliza Swenson is a 58-year-old male with a medical history of nephrolithiasis starting at the age of 12, but apparently has been frequent for him. He also most recently had an admission after he fell off a ladder that broke some ribs on the left side with a very small pneumothorax; all of that healed and he was discharged home. Around 4 o'clock in the morning, he started developing left lower quadrant abdominal pain. He states that he had a bowel movement yesterday that was normal. He denies any urinary frequency, foul smell, but imaging reveals that he actually has multiple 6 mm stones on the left along with hydronephrosis. It also shows that there is a possible pneumonia in the left lower lobe or it could be some fibrosis. White count is normal. Lactate is normal. He denies coughing up any colors, but he still has left-sided rib pain from the fall and the fractures. There is currently no pneumothoraces on that. So, he has been started on Rocephin for possible pneumonia and possible pyelo, but this is likely just fibrosis. He denies any fevers as well. Currently, we are going to add some pain management, antiemetics, and consult Dr. Schafer for further evaluation and treatment of the nephrolithiasis. PAST MEDICAL HISTORY: 1. Hypertension. 2. Nephrolithiasis, multiple kidney stones that started at the age of 12 for him. History of lithotripsy. 3. Chronic pain in his lower back. 4. Appendicitis with appendectomy in the past. 5. Gallstones with cholecystectomy in the past. 6. Diverticulosis of the sigmoid colon. 7. History of recent fall with multiple rib fractures, but no surgery. SURGICAL HISTORY: 1. Appendectomy. 2. Cholecystectomy. 3. Right shoulder surgery. 4. Right collarbone replacement. Apparently he fell off a mountain and had multiple fractures from that. SOCIAL HISTORY: Between the ages of 15 and 25, he was a 1 pack per day smoker. He denies any tobacco now. He denies alcohol or illicit drug use. Lives at home with his . He is a [place]. Tends to inhale a lot of dust and fragments from animal feed. FAMILY HISTORY: Father at the age of 64 and apparently it is reported he had 5 myocardial infarctions and 7 strokes. He had a sister and 2 brothers, who had heart problems and diabetes. ALLERGIES: No known drug allergies. HOME MEDICATIONS: 1. Neurontin 600 mg p.o. nightly. 2. Celecoxib 200 mg p.o. daily. 3. Fosinopril sodium 40 mg p.o. daily. 4. Tizanidine 2 mg p.o. every 8 hours. REVIEW OF SYSTEMS: Fourteen point review of systems are complete and all were negative, except for those mentioned above in HPI. PHYSICAL EXAMINATION: VITAL SIGNS: Temperature 97.5 degrees, heart rate 82, respiratory rate 22, blood pressure 180/91, O2 saturation 92% on room air, 5 feet 6 inches tall, 215 pounds, BMI is 34.7. GENERAL EXAMINATION: Mr. Eliza Swenson is a 58-year-old male. He is in no acute distress. He is able to answer questions appropriately. HEENT: Atraumatic, normocephalic. Pupils equal, round, reactive to light. Extraocular movements intact. Mucous membranes are moist. NECK: Trachea midline. CARDIOVASCULAR: S1, S2. Regular rate and rhythm. No rubs, gallops, murmurs. No lower extremity edema. +2 dorsalis and radial pulses. Negative JVD or carotid bruits. PULMONARY: Clear to auscultate with bilateral breath sounds. No accessory muscle use or work of breathing noted. GI: Soft, mild tenderness left lower quadrant about 2/3 with palpation. Positive bowel sounds x4. EXTREMITIES: Moves all extremities equally. Full range of motion. NEUROLOGIC: A and O x3. Follows commands. Sensory is intact. SKIN: Warm, dry, intact. LABORATORY DATA: White blood cells 6000, hemoglobin 15, hematocrit 48, platelet count 260. Sodium 141, potassium 4.5. BUN 27, creatinine 1.1, glucose 125, calcium 9.3 bilirubin 0.27. AST 14, ALT 21, albumin 4.4, lipase 30, lactate 1. Urinalysis with 30 protein, moderate blood, negative nitrites, negative for leukocytes, too numerous to count red blood cells, negative bacteria. IMAGING: Chest x-ray: Right lower lobe atelectasis, pleural fibrosis on the left. Abdominal and pelvic CT: Hydronephrosis on the left due to ureteropelvic junction stone. There is actually more than one stone at 6 mm with left nephrolithiasis. Left pleural effusion and left lower lobe atelectasis versus pneumonia. ASSESSMENT AND PLAN: 1. Left nephrolithiasis with 6 mm stone in the ureteropelvic junction. There are also additional stones in the lower pole marilee on the left, the larger of which is also 6 mm in diameter. Intravenous fluids. He is on nothing by mouth, antiemetics, pain medication and consult is in for Dr. Schafer. 2. Chronic pain syndrome. Currently, he is being controlled with the pain medication we had given today. 3. History of diverticulosis. He is a little constipated on the imaging. 4. Hypertension, currently a little more elevated likely secondary to his pain. 5. Deep venous thrombosis prophylaxis. Sequential compression devices. 6. 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 He also has recent rib fractures on the left; most likely it is not pneumonia, but he has been started on some Rocephin. White count is normal. He is not coughing up colors, so it could be stopped after evaluation. Dictated by CHEMA West for Lionel Allen MD cc: CHEMA West MD
[2018-12-27] MEDS: ZANAFLEX PO SCH ×2 (16:21→22:08)
--- NOTE | 2018-12-27 19:49 | HISTORY AND PHYSICAL ---
ADDENDUM: HISTORY OF PRESENT ILLNESS: I have seen and examined Mr. Swenson today. was at the bedside at the time of the encounter. Mr. Swenson has been admitted today because of abdominal discomfort, especially to the left side. Upon presenting, he was evaluated including a CT scan of the abdomen, which has revealed hydronephrosis of the left due to an ureteropelvic junction stone and a left nephrolithiasis. There is a left pleural effusion and a left lower lobe atelectasis versus pneumonia. The patient's CBC and chemistry are for the most part within normal range. Urinalysis shows blood and [id number]-count RBCs. ASSESSMENT/PLAN: 1. Left hydronephrosis due to ureteropelvic junction stone. The patient has been started on IV fluids, antibiotics. We will get urine culture, blood cultures, and we are pending Urology evaluation for possible stone retrieval and maybe stent placement. 2. Left nephrolithiasis. 3. Small left-side atelectasis. 4. Recent multiple rib fractures and nondisplaced left scapular fracture after mechanical fall on previous admission. Please refer to the details of the history and physical in chart which has been dictated by the TELEPHOTO INSTALLER. cc: Lionel Allen MD
[2018-12-27] MEDS ORDERED: NEURONTIN PO SCH (21:00)
--- NOTE | 2018-12-27 22:18 | CONSULTATION ---
DATE OF CONSULTATION: 12/27/2018 ATTENDING AND REFERRING PHYSICIAN: Hospitalist. CHIEF COMPLAINT: Left flank pain. HISTORY OF PRESENT ILLNESS: This 58-year-old male was admitted with severe left flank pain. He has a long history of renal lithiasis. Evaluation with a CT stone search revealed a 6 to 7 mm stone at the left ureteropelvic junction with hydronephrosis and a 7 mm left lower pole stone that did not appear to be obstructing. The patient states he 1st had a stone when he was 14 years of age. He states the last time he had surgery for a stone was about 5 years ago. He states he passes small stones all the time. He states he has a calcium problem that is followed by his family physician. The patient states Dilaudid is controlling his pain. PAST MEDICAL HISTORY: As noted in the HPI, hypertension, history of diverticulitis with diverticulosis of the sigmoid colon, chronic lower back pain. CURRENT MEDICATIONS: Documented on the chart. He is not taking any medication for his prostate. PAST SURGICAL HISTORY: [place] teeth extraction, cholecystectomy, appendectomy, right collarbone replacement secondary to a fall. He recently fell from a ladder and fractured his left-sided ribs and had a small pneumothorax. He was hospitalized for several days and was discharged last week. SOCIAL HISTORY: No current tobacco or alcohol use. He lives at home with his . ALLERGIES: No known drug allergies. REVIEW OF SYSTEMS: He denies any problems with diabetes, heart disease, strokes, seizures, or bowel problems. He states he occasionally has shortness of breath. PHYSICAL EXAMINATION: General: An obese, age apparent, normally developed, white male, oriented in all ways and cooperative. HEENT: Normal for age. Lungs: Clear. Cardiovascular: Regular rate and rhythm. Abdomen: Obese, soft, nontender. No hepatosplenomegaly or masses. Normal bowel sounds. No CVA tenderness was demonstrated at this exam. : Uncircumcised male. Foreskin retracts. Meatus is normal. Both testes are down. Scrotal exam with small bilateral hydroceles. Otherwise normal. No inguinal hernias. Rectal: Deferred until surgery. Extremities: No clubbing, cyanosis, or edema. Neurologic: No focal deficits. LABORATORY EVALUATION: He has a white count of 6.4, hemoglobin 15.9, hematocrit of 48.4, and platelets are 260,000. Serum electrolytes are normal. BUN 27, creatinine 1.1. CT stone search is as noted in the HPI. IMPRESSION: 1. Left flank pain. 2. Left ureteropelvic junction and lower pole stone with moderate hydronephrosis. PLAN: Discussed with patient and treatment of kidney stones is best served by a shockwave lithotripsy. Discussed the machine is only available on . Discussed to relieve pain until next when the machine is available, we would place a double-J stent. That would be placed under anesthesia and would be removed after shockwave lithotripsy. The planned procedure of cystoscopic exam with placement of a left double-J stent, possible complications, including, but not limited to, bleeding, infection, not being able to place the stent was discussed. The patient and state they understand and desired to proceed. cc: Ang Schafer MD
[2018-12-28] MEDS: NS 1,000 ML IV SCH ×2 (03:27→11:04)
[2018-12-28] MEDS: ZANAFLEX PO SCH ×2 (06:12→15:00)
[2018-12-28 06:40] LABS: BASO# 0.02 X1000 (0.0-0.2); BASO% 0.2 % (0.0-0.8); EOS# 0.47 X1000 (0.0-0.7); EOS% 5.8 % (0.0-10.0); HEMATOCRIT 46.2 % (42.0-52.0); IMM GRAN# 0.02 X1000 (0.0-0.04); IMM GRAN% 0.2 % (0.0-0.5); LYMPH# 1.31 X1000 (1.2-3.4); LYMPH% 16.2 % (20.5-51.1); MCH 29.6 PG (27-31); MCHC 32.5 g/dL (33-37); MCV 91.1 FL (81-99); MONO# 0.91 X1000 (0.11-0.59); MONO% 11.2 % (1.7-9.3); MPV 10.8 FL (7.4-10.4); NEUT# 5.38 X1000 (1.4-6.5); NEUT% 66.4 % (42.2-75.2); PLT 238 X1000 (130-400); RBC 5.07 XMIL (4.7-6.1); RDW 13.4 % (11.5-14.5); WBC 8.11 X1000 (4.8-10.8)
[2018-12-28 06:55] LABS: INR 1.06
[2018-12-28 06:56] LABS: PTT 31.5 Seconds (22.3-41.8)
[2018-12-28 07:04] LABS: AGAP 11; ALB/GLOB RATIO 1.5; ALBUMIN 3.8 g/dL (3.5-5.0); ALKALINE PHOSPHATASE 150 U/L (32-122); BUN 19 mg/dL (8-22); CALCIUM 8.6 mg/dL (8.8-10.2); CHLORIDE 108 mmol/L (98-107); COSMO 290; ESTIMATED GFR > 60; GLUCOSE 119 mg/dL (70-104); GOT 13 U/L (10-34); GPT 16 U/L (10-44); MAGNESIUM 1.9 mg/dL (1.5-2.7); SODIUM 144 mmol/L (136-145); TCO2 25 mmol/L (25-35); TOTAL BILIRUBIN 0.52 mg/dL (0.20-1.00); TOTAL PROTEIN 6.3 g/dL (6.3-8.3)
--- NOTE | 2018-12-28 08:03 | Diag Imaging Result Doc PS360 ---
EXAM: CHEST-2 VIEWS HISTORY: poss. left pna; sob TECHNIQUE: Two views COMPARISON: 12/27/2018 FINDINGS: The lungs are well expanded except for minimal left basilar atelectasis. The heart is not enlarged. The vessels are not distended. There are no infiltrates. Small left pleural effusion. Multiple old rib fractures and prior surgery to the right clavicle. IMPRESSION: No pneumonia Electronically signed by Erwin Salazar 12/28/2018 8:01 AM
[2018-12-28] MEDS ORDERED: CELEBREX PO SCH (09:00)
[2018-12-28] MEDS ORDERED: ROCEPHIN 1 GM in NS 50 ML IV SCH (11:00)
[2018-12-28] MEDS ORDERED: DIPRIVAN 1% ONE (14:58)
[2018-12-28] MEDS ORDERED: XYLOCAINE-MPF 2% ONE (14:58)
[2018-12-28] MEDS: MONOPRIL PO SCH ×2 (15:00→17:20)
[2018-12-28] MEDS ORDERED: ZOFRAN ONE (15:29)
[2018-12-28] MEDS ORDERED: DECADRON ONE (15:29)
[2018-12-28] MEDS ORDERED: FENTANYL ONE (15:31)
--- NOTE | 2018-12-28 16:01 | PROGRESS NOTE ---
DATE: 12/28/2018 SUBJECTIVE: This morning Mr. Swenson referred to be doing okay. The left flank pain has significantly improved. He is pending a stent placement today. OBJECTIVE: Vital signs: Blood pressure is 173/93, pulse of 85, respirations is 17, temperature is 98.2. General: Mr. Swenson is a 58-year-old gentleman, he is in bed, morbidly obese, with a BMI of 34.7. There was no distress. HEENT: Mucosa is pink and moist. Anicteric. Acyanotic. Neck: Supple. Chest: Clear to auscultation. No crepitations. No rhonchi. Cardiovascular: Regular rate and rhythm. GI: Abdomen is soft and nontender. Bowel sounds present. Mild CVA tenderness on the left. Extremities: No pedal edema. ATHLETIC FIELD CUSTODIAN: The patient is awake, alert and oriented. LABORATORY DATA: CBC is completely normal. Chemistry is also within normal range. So far blood culture is pending. Urine culture is still pending. ASSESSMENT: 1. Left hydronephrosis due to uteropelvic junction stone obstruction. The patient is pending urological intervention today. 2. Left nephrolithiasis. See #1. 3. Small left side atelectasis. 4. Recent multiple rib fractures and nondisplaced left scapular fracture after a mechanical fall. PLAN: So in general I think Mr. Swenson is doing well. He is currently on ceftriaxone as an antimicrobial coverage. He is getting IV fluids. We are pending urological intervention with possible stent placement. After that I think Mr. Swenson can potentially be discharged pending final recommendation from Urology. cc: Lionel Allen MD
[2018-12-28] MEDS ORDERED: DITROPAN PO PRN (16:19)
[2018-12-28] MEDS ORDERED: NORCO-7.5 PO PRN (16:20)
[2018-12-28 18:01] VITALS: BP 155/81
[2018-12-28] MEDS ORDERED: PERIDEX MT SCH (21:00)
--- NOTE | 2018-12-28 21:38 | OPERATIVE NOTE ---
PROCEDURE DATE: 12/28/2018 SURGEON: Ang Schafer MD PREOPERATIVE DIAGNOSIS: Left ureteropelvic junction stone with left hydronephrosis and flank pain. POSTOPERATIVE DIAGNOSIS: Left ureteropelvic junction stone with left hydronephrosis and flank pain. PROCEDURE PERFORMED: Cystoscopic exam, placement of left double-J stent. ANESTHESIA: General via laryngeal mask. FINDINGS: Cystoscopic exam: Urethra greater than 21 [place], without stricture. Prostate: Coapting lateral lobes, elevated bladder neck, length approximately 3.5 cm. Bladder: Normal ureteral orifices bilaterally. Grade 1 trabeculations. No diverticula or papillary lesions. No stones seen in the bladder. Fluoroscopic exam revealed a left proximal ureteral stone and also multiple stones in the prostatic fossa. DESCRIPTION OF PROCEDURE: A 0.035 ZIPwire was passed through the cystoscope, engaging the left ureteral orifice and advanced up into the kidney. A 6-Burmese, 22 cm double-J stent was passed over the ZIPwire and up into the kidney. The renal end was verified by fluoroscopic exam, bladder end directly visualized. Stent removal string was removed. The patient will undergo left extracorporeal shockwave lithotripsy and then cystoscopic exam with removal of the stent. He tolerated the procedure well. Estimated blood loss was zero. A rectal exam was performed that revealed a prostate of about 40 g, firm, but smooth and symmetric. He was taken to the recovery room in good condition. cc: Ang Schafer MD
--- NOTE | 2018-12-29 18:09 | DISCHARGE SUMMARY ---
ADMISSION DATE: 12/27/2018 DISCHARGE DATE: 12/28/2018 DISPOSITION: Home. FOLLOWUP: 1. Dr. Robyn Levin. 2. Dr. Schafer. CONSULTATIONS: During this admission, Urology was consulted. The patient was seen by Dr. Schafer. PROCEDURES: Invasive procedures done during this admission: A cystoscopy with lithotripsy, stone retrieval and double-J stent placement of the left ureter was done by Dr. Schafer. Still pending the official report on this. DIAGNOSTIC DATA: Imaging studies of significance: A CAT scan showed hydronephrosis on the left due to ureteropelvic junction stone and left nephrolithiasis. ADMISSION DIAGNOSES: 1. Left nephrolithiasis. 2. Chronic pain syndrome. 3. History of diverticulosis. DISCHARGE DIAGNOSES: 1. Left hydronephrosis due to ureteropelvic junction stone with obstruction. The patient is status post urological intervention with double-J stent placement. 2. Left nephrolithiasis. 3. Left side atelectasis. 4. Recent multiple rib fractures and nondisplaced left scapular fracture after mechanical fall. PRESENTING COMPLAINT: Left lower quadrant abdominal pain. HISTORY OF PRESENTING COMPLAINT: Mr. Swenson is a 58-year-old gentleman who is known to have multiple nephrolithiasis episodes. He came in this time because of left lower quadrant and back pain. Upon presentation, he was evaluated. A CAT scan revealed hydronephrosis on the left side, with UPJ stone. The patient was admitted for further medical care. HOSPITAL COURSE: Mr. Swenson was admitted to the surgical floor. He was adequately fluid- resuscitated, started on broad-spectrum IV antibiotics. Urology was consulted. The patient was seen by Dr. Schafer. Arrangements were done to take him to OR. Today Mr. Swenson was sent to OR. Urological intervention was performed. From the fluoroscopy image it appears that a double-J stent was placed in the left ureter. I am still waiting for the official report on the surgical intervention; however, the nurse called and said from a urology standpoint, Dr. Schafer thinks the patient can be discharged from his point. He is medically stable otherwise, so we are going to discharge him. He has an appointment to follow up with Dr. Schafer. DISCHARGE MEDICATIONS: He is going to be discharged on the following medications: 1. Fosinopril 40 mg p.o. daily. 2. Gabapentin 600 p.o. at bedtime. 3. Tizanidine 2 mg p.o. q.8. 4. Celecoxib 200 mg p.o. daily. 5. Oxybutynin 5 mg p.o. 3 times per day. 6. Levaquin 500 p.o. daily. 7. [place] 7 mg p.o. q.4 p.r.n. All the discharge instructions have been discussed with Mr. Swenson. He voiced understanding. Time spent for discharge was 32 minutes. cc: Lionel Allen MD
--- NOTE | 2018-12-31 10:57 | Diag Imaging Result Doc PS360 ---
FLUROSCOPY CYSTO - 12/28/2018 INDICATION: L URETERAL STONE, L STENT PLACED TECHNIQUE: Fluoroscopy and multiple views of the abdomen. The exam was performed by the patient's urologist. 17 images were obtained. COMPARISON: None FINDINGS: There was wire instrumentation of the left ureter and renal collecting system. A left nephroureteral stent was placed in good position. IMPRESSION: No complication. Electronically signed by Walter Morgan 12/31/2018 10:54 AM
== END 2018-12-28 19:10 | disposition home or self-care (01) | DRG 660 ==
LOC: ED 06:37 → EDIPHOLD 12:07 → 4N 14:14
PROVIDERS: ATTEND Internal Medicine

== ENCOUNTER 2019-03-27 03:23 | Observation (INO) ==
[2019-03-27] MEDS ORDERED: ASPIRIN PO ONE (03:31)
[2019-03-27] MEDS ORDERED: ASPIRIN ONE (03:36)
--- NOTE | 2019-03-27 03:49 | PROVIDER DOCUMENTATION ---
HPI-Neurological Disorder - General Chief Complaint: Altered Mental Status Stated Complaint: CHEST PAIN/SOB Time Seen by Provider: 03/27/19 03:25 Source: patient Allergies/Adverse Reactions: Patient Allergies Allergy/AdvReac Type Severity Reaction Status Date / Time No Known Allergies Allergy Verified 03/27/19 03:49 Home Medications: Home Medication List Medication Instructions Recorded Confirmed Last Taken Type Celecoxib 200 mg PO DAILY 12/03/18 03/27/19 Unknown History Fosinopril Sodium 20 mg PO DAILY 12/03/18 03/27/19 01/03/19 04:00 History Gabapentin 600 mg PO QPM 12/03/18 03/27/19 Unknown History Tizanidine HCl 2 mg PO Q8H 12/03/18 03/27/19 01/02/19 18:00 History Montelukast Sodium 10 mg PO QPM 03/27/19 03/27/19 Unknown History - History of Present Illness-Neuro Nature of Presenting Problem: 58 y/o WM c/o stroke like symptoms where when he woke this am he felt very weak and had difficulty with his speech. Pt notes that he has had C-spine surgery years back and had persistent rt sided facial numbness from that injury. Pt notes that he feels like he is doing better on arrival to the ER and actually is able to speak. His states that he woke in his recliner saying that he thought he was having a heart attack, was diaphoretic, and slurring his speech. Pt actually denies ever having and chest pain or SOB. Headache Location: denies: frontal, temporal, occipital, parietal, global, other Severity: reports: mild Onset/Duration: reports: just prior to arrival Timing: reports: still present, improving Context: reports: impaired speech, other (new weakness, generalized) Approximate time patient was last seen normal?: 20:30 Character of Altered Mental Status: reports: decreased responsiveness Any recent trauma/injury?: reports: none Character of Deficits: reports: new weakness, impaired speech New weakness or altered sensation location:: reports: RLE, LLE, general (diffuse) Cognitive Baseline: alert, oriented x3 Gait Baseline: walks without assistance Associated Symptoms: reports: sleepy, slurred speech, weakness Similar Symptoms Previously?: No Recently seen or treated by another doctor?: No - Seizure Episode details: denies: unknown duration, unknown number, details of seizure cannot be obtained, details of seizure cannot be verified Character of Seizure: denies: lost consciousness, generalized shaking all over, shaking in one area, staring, incontinent of urine, incontinent of stool, stopped breathing, other Post-ictal Symptoms: denies: none, confusion, lost power/feeling, speech difficulty, visual disturbance, headache, other Review of Systems - Adult - REVIEW OF SYSTEMS - ADULT Constitutional: reports: no symptoms reported, see HPI Eyes: reports: no symptoms reported, see HPI Ears, Nose, Mouth & Throat: reports: no symptoms reported, see HPI Cardiovascular: reports: no symptoms reported, see HPI Respiratory: reports: no symptoms reported, see HPI Gastrointestinal: reports: no symptoms reported, see HPI Genitourinary: reports: no symptoms reported, see HPI Musculoskeletal: reports: no symptoms reported, see HPI Integumentary: reports: no symptoms reported, see HPI Neurological: reports: see HPI, slurred speech, other (weakness) Psychiatric: reports: no symptoms reported, see HPI Endocrine: reports: no symptoms reported, see HPI Hematologic/Lymphatic: reports: no symptoms reported, see HPI Allergic/Immunologic: reports: no symptoms reported, see HPI All Other Systems: Reviewed and Negative Past History - Adult - PAST MEDICAL HISTORY-ADULT Review of Records: reports: Nursing Assessment Review, Medications Reviewed, Social history reviewed & non-contributory. Cardiovascular: reports: denies history Respiratory: reports: denies history Gastrointestinal: reports: denies history Musculoskeletal: reports: chronic pain Neurological: reports: denies history Psychiatric: reports: denies history - FAMILY HISTORY Family History: reviewed, not pertinent Physical Exam- Neurological - Physical Exam-Neuro Initial Vital Signs Reviewed: Yes General Appearance: appears well, alert, no apparent distress Eye Exam: bilateral eye: normal inspection, PERRL, EOMI HENMT: normocephalic/atraumatic, moist mucous membranes, normal ENT inspection Head Injury: no evidence of injury Neck: non-tender, full range of motion, supple, normal inspection Respiratory: chest non-tender, lungs clear, normal breath sounds, no pleuratic chest pain, no respiratory distress, no accessory muscle use Cardiovascular: normal peripheral pulses, regular rate, rhythm, no edema, no gallop, no JVD, no murmur Abdominal Exam: normal bowel sounds, non tender, soft, no organomegaly, no pulsatile mass Lymphatic: no adenopathy Extremity: normal range of motion, non-tender, normal gait, normal inspection, no pedal edema, no calf tenderness, normal capillary refill clinical education specialist Exam: normal hearing, normal speech, PERRL Coordination/Gait: normal finger to nose Motor/Sensory: no sensory deficit (rt sided facial numbness but pt states that this is old.) Neurologic: clinical education specialist II-XII nml as tested, grossly normal, no motor/sensory deficits Integumentary: normal color, normal turgor Psych/Mental Status: normal mood/affect, normal thought content, normal thought process, oriented x 3 - Glascow Coma Scale Best Eye Response: (4) open spontaneously Best Verbal Response: (5) oriented Best Motor Response: (6) obeys commands Progress - PLAN OF CARE/RESULTS Progress/Plan/Lab Results: Vital Signs - 8 hr 03/27/19 03:35 03/27/19 04:17 03/27/19 05:30 Temperature 98.7 F Pulse Rate 79 72 68 Respiratory Rate 20 16 18 Blood Pressure 148/81 110/68 124/73 O2 Sat by Pulse Oximetry 93 L 96 97 Laboratory Results - last 24 hr 03/27/19 03/27/19 03/27/19 03:20 03:30 03:30 WBC RBC Hgb Hct MCV MCH MCHC RDW Std Deviation Plt Count MPV Immature Gran % (Auto) Neut % (Auto) Lymph % (Auto) [place] % (Auto) Eos % (Auto) Baso % (Auto) Immature Gran # (Auto) Neut # (Auto) Lymph # (Auto) [place] # (Auto) Eos # (Auto) Baso # (Auto) PT 13.5 INR 1.02 PTT (Actin FS) 25.8 Sodium 140 Potassium 4.5 Chloride 100 Carbon Dioxide 25 Anion Gap 15 BUN 20 Creatinine 1.0 Estimated GFR/1.73 m2 > 60 BUN/Creatinine Ratio 20 Glucose 137 H Calculated Osmolality 284 Calcium 9.1 Total Bilirubin 0.43 AST 15 ALT 23 Alkaline Phosphatase 127 H Troponin T High Sens Jwg-A-Uxrucwepqiv Pept 27 Total Protein 6.5 Albumin 4.1 Globulin 2.4 Albumin/Globulin Ratio 1.7 03/27/19 03/27/19 03:30 03:41 WBC 8.17 RBC 5.43 Hgb 15.7 Hct 48.1 MCV 88.6 MCH 28.9 MCHC 32.6 L RDW Std Deviation 13.8 Plt Count 248 MPV 10.9 H Immature Gran % (Auto) 0.0 Neut % (Auto) 65.7 Lymph % (Auto) 15.9 L [place] % (Auto) 14.7 H Eos % (Auto) 3.5 Baso % (Auto) 0.2 Immature Gran # (Auto) 0.00 Neut # (Auto) 5.36 Lymph # (Auto) 1.30 [place]ro # (Auto) 1.20 H Eos # (Auto) 0.29 Baso # (Auto) 0.02 PT INR PTT (Actin FS) Sodium Potassium Chloride Carbon Dioxide Anion Gap BUN Creatinine Estimated GFR/1.73 m2 BUN/Creatinine Ratio Glucose Calculated Osmolality Calcium Total Bilirubin AST ALT Alkaline Phosphatase Troponin T High Sens 8 Yvg-Y-Edvnqkyrbxb Pept Total Protein Albumin Globulin Albumin/Globulin Ratio Orders Category Date Time Status CHEST-1 VIEW [RAD] Stat Exams 03/27/19 03:[address] HEAD W/O CONTRAST [CT] Stat Exams 03/27/19 03:40 Taken CBC WITH ELECTRONIC DIFF [HEME] Stat Lab 03/27/19 03:41 Completed COMPREHENSIVE METABOLIC PANEL [CHEM] Stat Lab 03/27/19 03:30 Completed PRO B-NATRIURETIC PEPTIDE Stat Lab 03/27/19 03:30 Completed PT [PROTIME WITH INR] [COAG] Stat Lab 03/27/19 03:20 Completed PTT [COAG] Stat Lab 03/27/19 03:20 Completed TROPONIN T HIGH SENSITIVITY Stat Lab 03/27/19 03:30 Completed Aspirin Med 03/27/19 03:36 Discontinued 325 mg .ROUTE .STK-MED ONE Aspirin Med 03/27/19 03:31 Discontinued 325 mg PO NOW ONE Celecoxib Med 03/27/19 09:00 Ordered 200 mg PO DAILY Fosinopril Sodium Med 03/27/19 09:00 Ordered 20 mg PO DAILY Gabapentin [Neurontin] Med 03/27/19 21:00 Ordered 600 mg PO QPM Montelukast [Singulair] Med 03/27/19 21:00 Ordered 10 mg PO QPM Tizanidine HCl Med 03/27/19 06:00 Ordered 2 mg PO Q8H EKG [EKG] Stat Ther 03/27/19 03:26 Draft Transfer/Admit Order [TRANSFER] Routine Transfer 03/27/19 05:53 Ordered Result Diagrams: 03/27/19 03:41 03/27/19 03:30 - EKG 1 Time of EKG reading by physician:: 03:29 EKG Read and Signed by:: Artie Perez EKG Interpretation (*Must complete 3 of following elements*): Normal Rate: 75 Rhythm: nsr Semora: normal QRS: normal FL Interval: normal ST Wave: normal - CT/MRI 1 CT Study: Head Impression: See EMR Report - CONSULTS/PCP/HOSPITALIST Notification #1 *Consult/PCP/Hospitalist*: Dr Corral Time Discussed: 05:10 Consult Disposition: Will see in ED, Admit Departure - Departure Date of Disposition Decision: 03/27/19 Time of Disposition Decision: 05:10 DIAGNOSIS: HTN (hypertension), TIA (transient ischemic attack) Disposition: ADMITTED INPATIENT 09 Certified Medical Emergency: Emergent Condition: Fair - Critical Care Note This patient required my direct & personal management of CC.: No Attestation - Physician/ KIRA Attestation Patient care was provided by Advanced Practice Provider:: No The physician spent face to face time with patient:: Yes Advanced Practice Provider documentation review:: Supervising physician onsite and consulted in the evaluation and care of this patient. The physician did have a face to face encounter with the patient. - NIH Stroke Scale NIH Type: Initial Evaluation Level of Consciousness: 0-Alert LOC Questions (ask month and age): 0-Answers Both Correctly LOC Commands (ask to open & close eyes;make a fist, let go): 0-Obeys Both Correctly Best Gaze (horizontal eye movement): 0-Normal Visual (use finger movement, counting or visual threat): 0-No Visual Loss Facial Palsy (show teeth or raise eyebrows & close eyes tght: 0-Symmetrical Mov ement Motor Function-left arm: 0-Normal Motor Function-right arm: 0-Normal Motor Function-left le-Normal Motor Function-right le-Normal Limb Ataxia(hxanao-uppq-bzxnby, or heel to esquivel): 0-No Ataxia Sensory(pin prick to face,arms,trunk,legs-compare side/side): 0-No Ataxia Best Language(name item/read sentence.Ex-Down to Earth): 0-No Aphasia Dysarthria(Pt read words or say words Ex.Mama,Tip-Top,Thanks: 0-Normal Articulation Extinction and Inattention: 0-Normal NIH Total Score: 0 Modified [place] Score Criteria: 0-no symptoms Stroke tPA Guidelines - Inclusion Criteria for IV tPA 18 years old or older: Yes Ischemic stroke with measurable deficit: No Onset <3 hours ago *OR* 3-4.5 hours ago: No
[2019-03-27 03:50] LABS: BASO# 0.02 X1000 (0.0-0.2); BASO% 0.2 % (0.0-0.8); EOS# 0.29 X1000 (0.0-0.7); EOS% 3.5 % (0.0-10.0); HEMATOCRIT 48.1 % (42.0-52.0); HEMOGLOBIN 15.7 g/dL (14.0-18.0); LYMPH% 15.9 % (20.5-51.1); MCH 28.9 PG (27-31); MCHC 32.6 g/dL (33-37); MCV 88.6 FL (81-99); MONO% 14.7 % (1.7-9.3); MPV 10.9 FL (7.4-10.4); NEUT# 5.36 X1000 (1.4-6.5); NEUT% 65.7 % (42.2-75.2); PLT 248 X1000 (130-400); RBC 5.43 XMIL (4.7-6.1); RDW 13.8 % (11.5-14.5); WBC 8.17 X1000 (4.8-10.8)
[2019-03-27 04:04] LABS: INR 1.02; PROTIME 13.5 Seconds (11.0-16.0)
[2019-03-27 04:05] LABS: PTT 25.8 Seconds (22.3-41.8)
[2019-03-27 04:31] LABS: AGAP 15; ALB/GLOB RATIO 1.7; ALBUMIN 4.1 g/dL (3.5-5.0); ALKALINE PHOSPHATASE 127 U/L (32-122); BUN 20 mg/dL (8-22); CALCIUM 9.1 mg/dL (8.8-10.2); CHLORIDE 100 mmol/L (98-107); COSMO 284; ESTIMATED GFR > 60; GLUCOSE 137 mg/dL (70-104); GOT 15 U/L (10-34); GPT 23 U/L (10-44); POTASSIUM 4.5 mmol/L (3.5-5.1); SODIUM 140 mmol/L (136-145); TCO2 25 mmol/L (25-35); TOTAL BILIRUBIN 0.43 mg/dL (0.20-1.00); TOTAL PROTEIN 6.5 g/dL (6.3-8.3)
--- NOTE | 2019-03-27 05:02 | Diag Imaging Result Doc PS360 ---
EXAM: CHEST-1 VIEW HISTORY: cp TECHNIQUE: Single view COMPARISON: 12/28/2018 FINDINGS: The lungs are well expanded. The heart is not enlarged. The vessels are not distended. There are no infiltrates. No effusion identified. Orthopedic plate and screws in the right clavicle. There are old rib fractures. IMPRESSION: No acute abnormality Electronically signed by Erwin Salazar 03/27/2019 5:00 AM
--- NOTE | 2019-03-27 05:36 | EKG Report ---
Test Performed on : 03/27/2019 03:29:04 AM Test Reason : cp Blood Pressure : / mmHG Vent. Rate : 075 BPM Atrial Rate : 075 BPM P-R Int : 194 ms QRS Dur : 078 ms QT Int : 380 ms P-R-T Axes : 040 013 024 degrees QTc Int : 424 ms Normal sinus rhythm. Normal ECG When compared with ECG of 03-DEC-2018 22:18, Minimal criteria for Anterior infarct are no longer present No significant change was found Unconfirmed Result
[2019-03-27] MEDS ORDERED: ZANAFLEX PO SCH ×2 (06:00→21:00)
[2019-03-27] MEDS ORDERED: NS 1,000 ML IV SCH (06:21)
[2019-03-27] MEDS ORDERED: LOVENOX SUBQ SCH (06:21)
[2019-03-27] MEDS ORDERED: ZOFRAN IV PRN (06:21)
[2019-03-27] MEDS ORDERED: TYLENOL PO PRN (06:21)
--- NOTE | 2019-03-27 07:12 | HISTORY AND PHYSICAL ---
CHIEF COMPLAINT: Stroke-like symptoms. HISTORY OF PRESENT ILLNESS: This is a 58-year-old male with a past medical history of hypertension, nephrolithiasis, chronic pain in his lower back, appendicitis, and diverticulosis who comes in tonight after falling asleep in his recliner. He woke up and felt as if he were having a heart attack is what he said. He felt very weak, had difficulty with his speech. His at the bedside stated that he was slurring his speech. He was so weak that he could not stand. He was very diaphoretic. The patient denies ever actually having chest pain or shortness of breath and he does remember the entire episode. He was still slurring his words on arrival to the emergency room. He has had some C-spine surgery years back and he has had persistent right-sided facial numbness from that injury but he did have right lower extremity and left lower extremity weakness to the point where he was unable to stand. During my assessment, all of his neurological complaints have resolved. He does still have right-sided facial numbness but that is old. He is back to baseline according to him and the who is at bedside. He will be admitted for further evaluation of TIA. PAST MEDICAL HISTORY: See HPI. PREVIOUS SURGICAL HISTORY: 1. Appendectomy. 2. Cholecystectomy. 3. Right surgery shoulder. 4. C-spine surgery. 5. Right collarbone replacement. SOCIAL HISTORY: Was a 1 pack a day smoker around 10 days. I believe he quit at age 25. Lives at home with his . He is a [place]. No alcohol. No illicit drugs. FAMILY HISTORY: Father at age 64, had 5 myocardial infarctions and multiple strokes. Heart disease and diabetes were in his siblings. ALLERGIES: No known drug allergies. HOME MEDICATIONS: 1. Celecoxib 200 mg p.o. daily. 2. Lisinopril 20 mg p.o. daily. 3. Gabapentin 600 mg p.o. q.a.m. 4. Singulair 10 mg p.o. q.a.m. 5. Tizanidine 2 mg p.o. q.8 hours. REVIEW OF SYSTEMS: Fourteen point review of systems conducted with the patient. Pertinent positives listed above in the HPI. All other systems reviewed and found to be negative. PHYSICAL EXAMINATION: VITAL SIGNS: Temperature 98.7 degrees, pulse 68, respirations 18, blood pressure 124/73, oxygen saturation 97% on 2 liters nasal cannula. GENERAL: Pleasant 58-year-old male lying in the ER stretcher. Alert and oriented x3, in no acute distress. HEENT: Head is atraumatic, normocephalic. Pupils equal, round and reactive to light. Extraocular eye movements intact. Sclerae anicteric. Conjunctivae pink. Oral mucosa is moist. NECK: Supple. No JVD. No thyromegaly. Trachea is midline. No cervical lymphadenopathy. CARDIAC: S1, S2 appreciated. No murmurs, gallops, rubs. LUNGS: Clear to auscultation bilaterally. No rhonchi, wheezes, rales. Symmetric rise and fall of respirations. ABDOMEN: Soft, nondistended, nontender. Bowel sounds present all 4 quadrants. Normoactive. No pulsatile mass or organomegaly. EXTREMITIES: No cyanosis, clubbing or edema. 2+ pedal pulses bilaterally. GENITOURINARY: No bladder distention. Patient voids, otherwise deferred. NEUROLOGICAL: Alert and oriented x3. Cranial nerves 2-12 grossly intact. Right-sided facial numbness from old C-spine injury. DIAGNOSTIC DATA: CT of the head, no acute intracranial process. Chest x-ray shows no acute abnormality. EKG normal sinus rhythm with a rate of 75. LABORATORY DATA: CBC within normal limits. Coags within normal limits. Chemistry panel within normal limits other than a glucose of 137. ASSESSMENT AND PLAN: 1. TIA. 2. Hyperglycemia with no diagnosis of diabetes mellitus. 3. Hypertension, now normotensive. 4. Chronic pain syndrome. PLAN: Admit patient to the medical floor. Echo, MRI and carotid ultrasound this morning. Continue home medications. We will start atorvastatin 40 mg p.o. daily. Check a direct lipid profile. Check hemoglobin A1c. Further recommendations per patient's clinical course. Dictated by CHEMA Spears for Danielito Golden MD cc: CHEMA Spears MD
[2019-03-27 07:14] LABS: HEMOGLOBIN A1C 6.2 % (4.8-6.0)
--- NOTE | 2019-03-27 07:43 | Diag Imaging Result Doc PS360 ---
EXAM: CT HEAD W/O CONTRAST INDICATION: ams TECHNIQUE: This exam was performed using automated exposure control, adjustment of mA or kV according to patient size, and/or use of iterative reconstruction technique. COMPARISON: 12/03/2018 FINDINGS: There is no definite acute infarct given the limited sensitivity of CT versus MRI. There is no discrete intracranial mass, mass effect, or intracranial hemorrhage. There is trace maxillary and left ethmoid sinus mucosal thickening. Surrounding soft tissues and bony structures are essentially unremarkable, otherwise. IMPRESSION: No evidence of acute intracranial pathology. Electronically signed by Caleb Cr 03/27/2019 7:41 AM
[2019-03-27] MEDS ORDERED: MONOPRIL PO SCH (09:00)
[2019-03-27] MEDS ORDERED: CELEBREX PO SCH (09:00)
[2019-03-27] MEDS ORDERED: ASPIRIN PO SCH (09:00)
[2019-03-27 12:24] VITALS: BP 144/67
--- NOTE | 2019-03-27 13:12 | Diag Imaging Result Doc PS360 ---
EXAM: MRI BRAIN W/WO CONTRAST INDICATION: stroke COMPARISON: CT head dated 03/27/2019. No prior MRI brain is available for comparison. FINDINGS: There is no evidence of acute infarct. The deep white matter signal is unremarkable. There is no discrete intracranial mass, mass effect, or intracranial hemorrhage. There is no evidence of abnormal intracranial enhancement. There is minimal maxillary and ethmoid sinus mucosal disease. Surrounding soft tissues and bony structures are essentially unremarkable, otherwise. IMPRESSION: No evidence of acute intracranial pathology and essentially unremarkable, otherwise. Electronically signed by Caleb Cr 03/27/2019 1:10 PM
--- NOTE | 2019-03-27 13:38 | ECHO REPORT ---
ORDER DATE: 03/27/2019 INTERPRETING PHYSICIAN: Dr. Ruffin. ECHOCARDIOGRAPHIC MEASUREMENTS: 1. Interventricular septum 1.1. 2. Left ventricular posterior wall 1.0. 3. Diastolic diameter 3.6. 4. Left atrium 3.1. 5. Aorta 3.5. SUMMARY OF 2-DIMENSIONAL IMAGIN. Mitral valve was normal. 2. Tricuspid valve was normal. 3. Aortic valve leaflets were trileaflet. 4. Pulmonic valve was normal. There is trace pulmonary regurgitation. 5. Normal left ventricular cavity size. Estimated ejection fraction of 65%. There is mild mitral regurgitation. 6. Mild tricuspid regurgitation. Peak velocity across the tricuspid valve was 2.7 m/sec. 7. Pulmonary artery systolic pressure of 39 mmHg. 8. Peak velocity across the aortic valve less than 2 m/sec by Doppler studies. There is no aortic stenosis or regurgitation. 9. There is no pericardial effusion or obvious intracardiac mass or thrombus seen. cc: MD Matthew Garcia CRNP
[2019-03-27] MEDS ORDERED: LIPITOR PO SCH (21:00)
[2019-03-27] MEDS ORDERED: NEURONTIN PO SCH (21:00)
[2019-03-27] MEDS ORDERED: SINGULAIR PO SCH (21:00)
--- NOTE | 2019-03-28 09:28 | Carotid Study ---
DATE: 03/27/2019 REQUESTING PROVIDER: Larissa. MIDDLE SCHOOL FRENCH TEACHER: Carlota. INDICATIONS: Transient ischemic attack. EQUIPMENT: GE Vivid E9 ultrasound system and a 9 L-D transducer. FINDINGS: Complete diagram of ultrasound images can be seen scanned in the patient's medical record. The peak systolic velocity noted on the right side in the mid internal carotid artery and is noted to be 86. The peak systolic velocity in the left side is noted in the mid internal carotid artery and is noted to be 84. The calculated internal coloration of the right 0.62 and left 0.78. Calculated stenosis on the right 0 to 39 percent, left 0 to 39 percent. Findings visually no real significant atherosclerosis. Both vertebral arteries were antegrade flow. There is some tortuosity noted to the vessels. INTERPRETATION: By strict velocity criteria, no hemodynamically significant flow-limiting stenosis. Given the tortuosity, it probably would be best to continue to monitor the patient, especially in the setting of transient ischemic attacks. cc: MD Matthew Brasher CRNP
--- NOTE | 2019-03-28 11:21 | DISCHARGE SUMMARY ---
ADMISSION DATE: 03/27/2019 DISCHARGE DATE: 03/27/2019 DISCHARGE DIAGNOSES: 1. Transient ischemic attack. 2. Hypertension. 3. Chronic pain syndrome. CONSULTATIONS: None. PROCEDURES: 1. Head CT showed no acute abnormality. 2. Carotid Doppler study showed no hemodynamically significant flow-limiting stenosis. 3. Echocardiogram Doppler showed ejection fraction of 65% with no pericardial effusion. No obvious intracardiac mass or thrombus seen. 4. Brain MRI showed no evidence of acute intracranial pathology and essentially unremarkable. HOSPITAL COURSE: This is a 58-year-old male with past medical history of hypertension, nephrolithiasis, chronic pain in his lower back, appendicitis and diverticulosis, who came to the emergency department after falling asleep in his recliner. When he woke up, he felt that he was having chest pressure, feeling very weak, problem with his speech that was slurring according to the . So, they decided to come to the emergency department. He was admitted for rule out stroke versus TIA. Workup was done as above, so patient is going to be discharged in stable condition today. DISCHARGE PHYSICAL EXAMINATION: Vital Signs: Temperature 97.5 degrees, heart rate 75, respiratory rate 20, blood pressure 124/67, O2 saturation 94% on room air. General examination: This is a 58-year-old male, lying in bed in no acute distress. Cardiovascular exam: S1, S2 heard. No murmurs, gallops, or rubs. Regular rate and rhythm. Respiratory: Clear bilaterally to auscultation. No work of breathing or using accessory muscles. Abdomen: Soft, nontender to palpation. Bowel sounds present. No organomegaly. Extremities: No clubbing, cyanosis, or edema. Peripheral pulses present in both legs. Neurological exam: The patient is alert and oriented x3. Moves 4 extremities. DISCHARGE DISPOSITION: Home to self-care. DISCHARGE MEDICATIONS: We are not going to make any changes to his current list of medications. cc: Jonah Diaz MD
== END 2019-03-27 16:58 | disposition home or self-care (01) ==
LOC: ED 03:23 → EDIPHOLD 03:23 → SUATTDRO 06:03 → EDIPHOLD 09:24 → 4N 12:14
PROVIDERS: ATTEND Internal Medicine